=== PATIENT | female | born 1975 | race African-American/Black ===

== ENCOUNTER → 2018-11-21 | Outpatient (CLI) | payer OTHER ==
--- NOTE | 2018-11-21 15:43 | KCIC ---
EXAM: Right wrist, 3 views. HISTORY: Carpal tunnel syndrome. COMPARISON: None. FINDINGS: 3 views of the right wrist are obtained. There is no fracture, dislocation or subluxation. IMPRESSION: No acute osseous finding. Electronically signed by: Joanna Holm MD (11/21/2018 3:40 PM) [place] [id number]
== END | disposition home or self-care (01) ==
LOC: KCIC 13:42
PROVIDERS: ATTEND Pediatrics
DX: G56.01 Carpal tunnel syndrome, right upper limb (principal)
CPT/HCPCS: 73110